=== PATIENT | male | born 1955 | race Caucasian/White ===

== ENCOUNTER 2019-12-26 14:11 | Emergency (ER) | payer OTHER ==
[~2019-12-26] VITALS: Ht 182.9 cm; Wt 86.2 kg
[~2019-12-26 14:11] MED LIST: Alprazolam1 MG PO; DULO30 PO; GENT.3OPO TOP; LISI20 PO; LORA.5 PO; METH10 PO; Mobic15 MG PO; NAPR500 PO; OXYACE5T PO; OXYC10TA19 PO; OXYC5 PO; PRED10 PO; SULI150 PO; TRAZ50 PO; [UNRECOGNIZED DRUG - REMARK]
[2019-12-26] MEDS ORDERED: DULO60 PO (15:41)
[2019-12-26] MEDS ORDERED: Percocet 5-3251 EACH PO (15:50)
[2019-12-26] MEDS ORDERED: Keflex500 MG PO (15:50)
== END 2019-12-26 15:55 | disposition home or self-care (01) ==
LOC: ER 14:11
DX: S68.120A Partial traumatic metacarpophalangeal amputation of right index finger, initial encounter (principal); N19 Unspecified kidney failure; F17.200 Nicotine dependence, unspecified, uncomplicated; Z23 Encounter for immunization; Z88.5 Allergy status to narcotic agent; Z79.899 Other long term (current) drug therapy; Z86.19 Personal history of other infectious and parasitic diseases; Z89.021 Acquired absence of right finger(s); W23.0XXA Caught, crushed, jammed, or pinched between moving objects, initial encounter
CPT/HCPCS: 12041; 73140; 90471; 90714; 99283-25; A9270-GY; L3917

== ENCOUNTER 2025-03-11 12:58 | Day surgery (SDC) | payer OTHER ==
[~2025-03-11] VITALS: Ht 180.3 cm; Wt 97.7 kg
[~2025-03-11 12:58] MED LIST changes: +ASPI81CH PO; +BISA5EC PO; +CATAPRES0.1 MG PO; +DULO60 PO; +HYDROCHLOROTH12.5 MG PO; +Keflex500 MG PO; +METO50ER PO; +Percocet 5-3251 EACH PO
[2025-03-11 14:09] VITALS: BP 138/106
--- NOTE | 2025-03-11 14:33 | NUR ---
History, Chart, Medications and Allergies reviewed before start of procedure. Ambulatory in Day Surgery. Patient confirms NPO status and agrees with scheduled surgery. Patient States Post-Procedure ride home has been arranged. HEARTRATE 130'S. DR. TANG INFORMED. ANESTHESIA CONSULTED. EKG ORDERED AND COMPLETED. PATIENT DENIES CP OR SOB. STATES HE HAS NEVER BEEN TOLD HE HAS A HIGH HARE RATE. UPON INSERTION OF IV, HR DROPPED AND MAINTAINED 80'S-90'S. CONTINUES TO DENIES COMPLAINTS.
--- NOTE | 2025-03-11 14:52 | NUR ---
HEARTRATE RETURNED TO 130'S. ENMA SANCHEZ AT BEDSIDE TO SPEAK WITH PATIENT. REQUESTS FOR 1 LITER OF LR TO BE GIVEN BEFORE STARTING PROCEDURE.
--- NOTE | 2025-03-11 14:57 | NUR ---
HR RETURNED TO 80-90'S. PATIENT RESTING WITH EYES CLOSED.
--- NOTE | 2025-03-11 15:08 | NUR ---
03/11/25 1508 Beth Hernadez CRNA; SEE ANESTHESIA RECORDS.
[2025-03-11 15:53] VITALS: BP 109/60
[2025-03-11 16:03] VITALS: BP 148/95
--- NOTE | 2025-03-11 16:08 | NUR ---
Patient up to Ambulate independently. Gait steady. Discharge instructions reviewed with patient. Patient verbalizes understanding. Copy given to patient to take home. PER ENMA SANCHEZ PATIENT ADVISED TO F/U WITH PCP REGARDING TACHYCARDIA, PT AND VERBALIZED UNDERSTANDING.
== END 2025-03-11 16:17 | disposition home or self-care (01) ==
LOC: ORSCMMR 12:58 → ORD 14:45 → ORSCMMR 14:45
PROVIDERS: Family Medicine
PROC: 0DBN8ZX Excision of Sigmoid Colon, Via Natural or Artificial Opening Endoscopic, Diagnostic (ICD-10-PCS; principal; 2025-03-11 14:45)
DX: Z12.11 Encounter for screening for malignant neoplasm of colon (principal); K63.5 Polyp of colon; K64.4 Residual hemorrhoidal skin tags; K64.0 First degree hemorrhoids; K57.30 Diverticulosis of large intestine without perforation or abscess without bleeding; I10 Essential (primary) hypertension; Z86.19 Personal history of other infectious and parasitic diseases; Z79.82 Long term (current) use of aspirin; Z79.899 Other long term (current) drug therapy; E66.9 Obesity, unspecified; Z68.30 Body mass index [BMI] 30.0-30.9, adult; D69.6 Thrombocytopenia, unspecified
CPT/HCPCS: 36415; 80053; 85025; 88305; 93005; 93010; J2704; J7120